=== PATIENT | male | born 1945 | race Caucasian/White ===

== ENCOUNTER 2022-04-05 12:02 | Outpatient (RCR) | payer MEDICARE, BC, SELFPAY | END 2022-10-02 23:59 | disposition home or self-care (01) | LOC: CCIC 12:02 | PROVIDERS: PCP Family Medicine; Visit Provider Radiology Radiation Oncology | DX: C32.9 Malignant neoplasm of larynx, unspecified (principal) ==

== ENCOUNTER 2022-05-17 08:21 | Outpatient (CLI) | payer MEDICARE, BC, SELFPAY ==
--- NOTE | 2022-05-17 08:15 | CRLHL7_ITS ---
For Patients: As a result of the Century Cures Act, medical imaging exams and procedure reports are released immediately into your electronic medical record. You may view this report before your referring provider. If you have questions, please contact your health care provider. INDICATION: LARYNX CA TECHNIQUE: Modified barium swallow. Fluoroscopic time 1 minutes 20 seconds. COMPARISON: None FINDINGS/IMPRESSION: Posttherapy changes are present. There is thickening of the epiglottis with decreased protection of the airway such that there is laryngeal penetration with all thicknesses of barium. Silent aspiration occurred with thin barium in the upright position which decreased with head flex maneuver. Dictated by Nacho Olson MD @ 05/17/2022 12:24:09 PM (Electronically Signed)
== END 2022-05-17 08:22 | disposition home or self-care (01) ==
LOC: RAD 08:22
PROVIDERS: PCP Family Medicine; Visit Provider Physician Assistant
DX: C32.9 Malignant neoplasm of larynx, unspecified (principal)
CPT/HCPCS: 74230; 92611

== ENCOUNTER 2022-05-29 09:00 | Outpatient (RCR) | payer MEDICARE, BC, SELFPAY | END 2022-12-28 23:59 | disposition home or self-care (01) | PROVIDERS: PCP Family Medicine; Visit Provider Physician Assistant | DX: R13.10 Dysphagia, unspecified (principal); Z51.89 Encounter for other specified aftercare | CPT/HCPCS: 92610 ==

== ENCOUNTER 2022-11-15 10:30 | Outpatient (RCR) | payer MEDICARE, BC, SELFPAY | END 2023-03-15 23:59 | disposition home or self-care (01) | PROVIDERS: PCP Family Medicine; Visit Provider Physician Assistant | DX: C32.9 Malignant neoplasm of larynx, unspecified (principal); Z51.89 Encounter for other specified aftercare; M54.2 Cervicalgia | CPT/HCPCS: 97110; 97140; 97161; 97166; 97535; X5282 ==